=== PATIENT | female | born 1935 | race Caucasian/White ===

== ENCOUNTER 2023-05-24 19:30 | Emergency (ER) | payer MEDICARE, MEDICAID ==
[~2023-05-24] VITALS: Ht 144.8 cm; Wt 69.4 kg
[2023-05-24 19:54] VITALS: BP 125/60; PULSE 60; RESP 16; TEMP 97.4; O2SAT 96
[2023-05-24] MEDS ORDERED: SULF-59 PO (22:52)
[2023-05-24] MEDS: ACETAMINOPHEN EXTRA STRENGTH 500 MG TAB PO ONE (23:09)
[2023-05-24] MEDS: LIDOCAINE/EPI 2% 1:100000 20 ML VIAL INJ ONE (23:47)
[2023-05-24 23:59] VITALS: BP 125/60; PULSE 60; RESP 16; TEMP 97.4; O2SAT 96
== END 2023-05-24 23:59 | disposition home or self-care (01) ==
LOC: MED 19:30
DX: L02.213 Cutaneous abscess of chest wall (principal); Z79.899 Other long term (current) drug therapy
CPT/HCPCS: 10060; 99284; J2001